=== PATIENT | female | born 1990 ===

== ENCOUNTER 2016-09-05 22:20 | Emergency (ER) | payer SELFPAY ==
[2016-09-05 22:55] VITALS: BMI 27.4
--- NOTE | 2016-09-05 23:01 | OBHP ---
Datetime: 09/05/2016 22:55 IP Adm Impression: , intrauterine IP Chief Complaint Other: right sided abdominal pain IP Admit Plan: Observation/Evaluation Admit Comment, IP Provider: Patient @ 21+ weeks with abdominal pain and back pain for past 2 hours, no vaginal bleeding, no leaking, no dysuria. Patient reports subjective fever at home with so re throat with coughing, no vomiting, no diarrhea, no other sick symptoms. Patient denies any antepar brian issues, no medical problems, no surgeries, previous x 1 no complications. DWD=[id number], afebrile and vitals stable. A/P 1. Patient shows no signs of labor or chorio. On exam patient has mild abdominal pain on deep palp ation of right lower quadrant, but no fever, no vomiting or other sick symptoms, no contractions. Sky l obtain UA, CBC and PO challenge patient 2. FHR obtained and no contractions on monitor 3. If patient remains stable and all tests are negative, will discharge patient home, patient has U/S for this tu09/07. Pelvic Type - PN: Adequate Extremities - PN: Normal Abdomen - PN: Abnormal Back - PN: Normal Breast - PN: Normal Lungs - PN: Normal Heart - PN: Normal Thyroid - PN: Normal Neurologic - PN: Normal HEENT - PN: Normal General - PN: Normal FHR - Baseline A Provider: 140s Contraction Comments Provider: none Comments, ACOG Physical Exam: patient has mild pain to deep palpation on right lower quadrant, no ga urding, no rebound, soft abdomen, +BS Genitourinary Exam: Normal DTRs - PN: Normal
[2016-09-05 23:14] LABS: BASO % 0.2 % (0.0-2.0); EOS # 0.4 K/uL (0.0-0.7); EOS % 2.2 % (0.0-4.0); HEMATOCRIT 36.9 % (34.0-47.0); LYMPH # 2.7 K/uL (1.0-4.3); LYMPH % 15.5 % (20.0-40.0); MEAN CELL VOLUME 92.1 fl (81.0-99.0); MEAN CORPUSCULAR HEMOGLOBIN 30.7 pg (27.0-31.0); MEAN CORPUSCULAR HGB CONC 33.4 g/dL (33.0-37.0); MEAN PLATELET VOLUME 9.8 fl (7.2-11.7); MONO # 1.1 K/uL (0.0-0.8); MONO % 6.4 % (0.0-10.0); NEUT # 13.4 K/uL (1.8-7.0); NEUT % 75.7 % (50.0-75.0); NRBC % 0.1 % (0.0-0.0); RED CELL DISTRIBUTION WIDTH 13.8 % (11.5-14.5); WHITE BLOOD COUNT 17.7 K/uL (4.8-10.8)
[2016-09-05 23:21] LABS: RBC URINE 4 /hpf (0-3); URINE BACTERIA RARE (<OCC); URINE BILIRUBIN NEGATIVE (NEGATIVE); URINE BLOOD SMALL (NEGATIVE); URINE COLOR YELLOW (YELLOW); URINE GLUCOSE (UA) NEG (Normal); URINE KETONE 20 mg/dL (NEGATIVE); URINE LEUKOCYTE ESTERASE NEG Leu/uL (Negative); URINE PROTEIN NEGATIVE (NEGATIVE); URINE UROBILINOGEN 0.2-1.0 mg/dL (0.2-1.0); WBC URINE 1 /hpf (0-5)
== END 2016-09-05 23:45 | disposition home or self-care (01) ==
LOC: H.EROB2 22:20
DX: O47.02 False labor before 37 completed weeks of gestation, second trimester (principal); Z3A.21 21 weeks gestation of pregnancy

== ENCOUNTER 2017-01-05 14:16 | Inpatient (IN) | payer MEDICAID, SELFPAY ==
--- NOTE | 2017-01-05 14:30 | OBPN ---
Datetime: 09/05/2016 23:30 IP Progress Plan: Discharge Contraction Comments Provider: none IP Progress Note Comment: Patient feeling slightly better, minimal abdominal pain. WBC=17, urine neg ative for infection, pt afebrile, tolerating PO. Fundus non-tender. No sign of chorio or labor. Unlik stas appedicitis because patient has no fever and is tolerating PO diet. Will discharge home, pt to fo llw up in clinic for U/S and office visit. Return to hospital if increased bleeding, leaking, abdomin al pain or new sick symptoms Datetime: 09/05/2016 22:55 FHR - Baseline A Provider: 140s
[2017-01-05 14:54] VITALS: BMI 33.6
[2017-01-05] MEDS: Lactated Ringer's 1,000 ML IV SCH ×2 (15:00→16:16)
[2017-01-05 16:00] LABS: BASO % 0.2 % (0.0-2.0); EOS # 0.2 K/uL (0.0-0.7); EOS % 1.9 % (0.0-4.0); LYMPH # 1.9 K/uL (1.0-4.3); LYMPH % 15.9 % (20.0-40.0); MEAN CELL VOLUME 92.3 fl (81.0-99.0); MEAN CORPUSCULAR HEMOGLOBIN 31.1 pg (27.0-31.0); MEAN CORPUSCULAR HGB CONC 33.7 g/dL (33.0-37.0); MEAN PLATELET VOLUME 11.5 fl (7.2-11.7); MONO # 1.1 K/uL (0.0-0.8); MONO % 9.8 % (0.0-10.0); NEUT # 8.4 K/uL (1.8-7.0); NEUT % 72.2 % (50.0-75.0); NRBC % 0.2 % (0.0-0.0); RED CELL DISTRIBUTION WIDTH 15.2 % (11.5-14.5); WHITE BLOOD COUNT 11.7 K/uL (4.8-10.8)
[2017-01-05] MEDS ORDERED: Fentanyl/Bupivacaine HCl 0 ML EPI ONE (16:56)
[2017-01-05] MEDS ORDERED: Lactated Ringer's 1,000 ML IV SCH (17:45)
[2017-01-05] MEDS ORDERED: Fentanyl/Bupivacaine HCl 250 ML EPI ONE (18:20)
[2017-01-05] MEDS ORDERED: Lidocaine 1% Inj (20ml) ONE (19:02)
--- NOTE | 2017-01-05 20:50 | OBPN ---
Datetime: 01/05/2017 20:23 IP Progress Impression: Normal progression of labor IP Informed Consent Obtain: Vaginal Delivery IP Progress Plan: Continue present management FHR - Baseline A Provider: 130 IP Progress Note Comment: at 38.2 wks, active labor, s/p epidural placement. pt is stable no c/ o or painl. Labor is progressing as usual. Pt was examined at 7:50pm, cervix was 7/90/0. Continue with expected mangement of labor. VS Stable FHR: 130, moderate variabilty, catagory I. [place] 2-[address] Calle --- Marylu Holm, PGY-1 (Annotations: Data stored by CPN on behalf of user) Vital Signs Provider: Reviewed; Within Normal Limits NICHD Accel Fetus A IP Provider: 15X15 FHR Category Provider Fetus A: Category I NICHD Variability Prov Fetus A: Moderate 6-25bpm Dilatation, Provider: 7 Effacement, Provider: 90 Station, Provider: 0 NICHD Decel Fetus A IP Provider: None Datetime: 01/05/2017 18:20 Membranes, Provider: Intact
[2017-01-05] MEDS ORDERED: Oxytocin 30 units/LR 500ML 30 U/500 ML BAG IV SCH (21:27)
[2017-01-05] MEDS ORDERED: Benzocaine/Menthol SPRAY TOP PRN (21:27)
[2017-01-05] MEDS ORDERED: Oxycodone/Acetaminophen 5/325 mg Tab PO PRN ×2 (21:27)
--- NOTE | 2017-01-05 21:32 | OBHP ---
Datetime: 01/05/2017 20:23 FHR - Baseline A Provider: 130 Vital Signs Provider: Reviewed; Within Normal Limits NICHD Variability Prov Fetus A: Moderate 6-25bpm NICHD Accel Fetus A IP Provider: 15X15 FHR Category Provider Fetus A: Category I NICHD Decel Fetus A IP Provider: None Dilatation, Provider: 7 Effacement, Provider: 90 Station, Provider: 0 Datetime: 01/05/2017 18:20 Membranes, Provider: Intact Datetime: 01/05/2017 15:13 IP Adm Impression: Term, intrauterine IP Admit Plan: Admit to unit; Initiate labor protocol Admit Comment, IP Provider: CC: "Contractions" HPI: 26 YO 28.2 wks IUP (by first trimester u/s) presents to [facility] for contractions. Per patie nt, the contractions started this morning around 9AM and has gotten more intense overtime. Currently, they are 4-5 minutes apart. Per chart pt had an echo done early in which showed tricuspid regurg, had a follow up with electric tape slitter 01/04/17 and pt was told that there was nothing of concern. Pt has had an uneventful thus far. Eduardo LOF, VB, +FM and +contractions. Denies headache, d izziness, N/V, fever. OBhx: CFH pt, 1 NVD full term, LGSIL 2013, normal pap 02/2015, HPV+ PMH: denies FH: denies SurgHx: denies Social hx: denies smoking, alcohol, drugs Meds: PNV [place]ergeis: NKDA PE Vitals: Stable GEN: Anxious Cardio: S1S2, no M/G/R Resp: vesicular breathing b/l Abdomen: gravid, NT, BS+ Ext: 1+ pitting edema, NT Cervicle: 3-4/75/0, posterior. Vertex presentation FHM: 140, moderte variability; catagory I Assessment/Plan: 26 YO 28.2 wks IUP (by first trimester u/s) presents to [facility] for contraction s. Per monitor, pt is having contractions every 3-4 mins, GBS neg, HIV neg (3rd tri), RPR neg, GC neg (3rd tri). Patient is in active phase of labor, vertex presentation. -admit to Labor and delivery -for pain, pt will consider epidural and will let us know later -CBC/Type and Screen/RPR -continue Monitoring, Monitor Labor progress Laury Berrios, PGY I obh addendum: pt seen _ examined by me. agree with assessment and plan. Pelvic Type - PN: Adequate Extremities - PN: Normal Abdomen - PN: Normal Back - PN: Not Done Breast - PN: Normal Lungs - PN: Normal Heart - PN: Normal Thyroid - PN: Not Done Neurologic - PN: Normal HEENT - PN: Normal General - PN: Normal EGA AdmitDate IP: 38.2 IP Chief Complaint: Uterine contractions Genitourinary Exam: Normal DTRs - PN: Not Done Datetime: 01/05/2017 15:11 IP Indication for Induction: Not Applicable Datetime: 09/05/2016 23:30 Contraction Comments Provider: none IP Hx Assessment: The History has been Reviewed and is Current
--- NOTE | 2017-01-05 21:33 | OBADHP ---
Datetime: 01/05/2017 20:23 FHR - Baseline A Provider: 130 Vital Signs Provider: Reviewed; Within Normal Limits NICHD Variability Prov Fetus A: Moderate 6-25bpm NICHD Accel Fetus A IP Provider: 15X15 FHR Category Provider Fetus A: Category I NICHD Decel Fetus A IP Provider: None Dilatation, Provider: 7 Effacement, Provider: 90 Station, Provider: 0 Datetime: 01/05/2017 18:20 Membranes, Provider: Intact Datetime: 01/05/2017 15:13 Pelvic Type - PN: Adequate Extremities - PN: Normal Abdomen - PN: Normal Back - PN: Not Done Breast - PN: Normal Lungs - PN: Normal Heart - PN: Normal Thyroid - PN: Not Done Neurologic - PN: Normal HEENT - PN: Normal General - PN: Normal IP Chief Complaint: Uterine contractions Genitourinary Exam: Normal DTRs - PN: Not Done EGA AdmitDate IP: 38.2 IP Adm Impression: Term, intrauterine IP Admit Plan: Admit to unit; Initiate labor protocol Datetime: 01/05/2017 15:11 Admit Comment, IP Provider: see triage note at 15:13 Datetime: 09/05/2016 23:30 Contraction Comments Provider: none IP Hx Assessment: The History has been Reviewed and is Current Datetime: 09/05/2016 22:55 IP Chief Complaint Other: right sided abdominal pain Comments, ACOG Physical Exam: patient has mild pain to deep palpation on right lower quadrant, no ga urding, no rebound, soft abdomen, +BS
--- NOTE | 2017-01-05 21:33 | OBHP ---
Datetime: 01/05/2017 15:13 EGA AdmitDate IP: 38.2 Datetime: 01/05/2017 15:11 Admit Comment, IP Provider: see triage note at 15:13
--- NOTE | 2017-01-05 21:57 | OBDS ---
DELIVERY PERSONNEL Delivery Doctor: Lily Crooks MD Welfare Eligibility Worker: Duran RN/ Sultana RN/ Araseli RN Anesthesiologist: Grant Nelson MD Resident: Dr. Holm MATERNAL INFORMATION Delivery Anesthesia: Epidural Medications in Delivery: Pitocin Estimated Blood Loss (ml): 300 Placenta Cultured: No Maternal Complications: None Provider Comments: DX: 38.2wks labor PP Dx: same Proced: over intact perineum ob:orossetos pgy1: jpatel anesth: epidural- dr nelson ebl: 300cc path none findings:3230// 9_9; male neon remained in br with pt. LABOR SUMMARY EDC: 01/17/2017 00:00 No. Babies in Womb: 1 Attempted: No Labor Anesthesia: Epidural LABOR INFORMATION Reason for Induction: Not Applicable Onset of Labor: 01/05/2017 09:00 Complete Dilatation: 01/05/2017 21:15 Other Ripening Agents: N/A Oxytocin: N/A Group B Beta Strep: Negative Antibiotics # of Doses: N/A Antibiotics Time of Last Dose: N/A Steroids Given: None Reason Steroids Not Administered: Not Applicable MEMBRANES Membranes Rupture Method: Spontaneous Rupture of Membranes: 01/05/2017 21:18 Length of Rupture (hrs): 0.00 Amniotic Fluid Color: Clear Amniotic Fluid Amount: Moderate Amniotic Fluid Odor: Normal STAGES OF LABOR Stage 1 hrs: 12 Stage 1 min: 15 Stage 2 hrs: 0 Stage 2 min: 3 Stage 3 hrs: 0 Stage 3 min: 5 Total Time in Labor hrs: 12 Total Time in Labor min: 23 VAGINAL DELIVERY Episiotomy: None Laceration Extension: N/A Laceration Type: None Laceration Repair: Not Applicable Initial Vag Sponge Count: 5 Final Vag Sponge Count: 5 Initial Vag Sharps Count: 15 Final Vag Sharps Count: 15 Sponge Count Correct: Yes Sharps Count Correct: Yes Count Comment: Laps 5 Instruments 15 All Count Correct BABY A INFORMATION Delivery Date/Time: 01/05/2017 21:18 Method of Delivery: Vaginal Born in Route : No : N/A Forceps: N/A Vacuum Extraction: N/A Shoulder Dystocia : No SHOULDER DYSTOCIA BABY A Delivery Date/Time: 01/05/2017 21:18 PRESENTATION/POSITION BABY A Presentation: Cephalic Cephalic Presentation: Vertex PLACENTA INFORMATION BABY A Placenta Delivery Time : 01/05/2017 21:23 Placenta Method of Delivery: Spontaneous Placenta Status: Delivered SCORES BABY A Heart Rate 1 min: >100 bpm Resp Effort 1 min: Good Cry Reflex Irritability 1 min: Cough or Sneeze or Pulls Away Muscle Tone 1 min: Active Motion Color 1 min: Body [place], Extremities Blue Resuscitation Effort 1 min: Tactile Stimulation SCORE 1 MIN: 9 Heart Rate 5 min: >100 bpm Resp Effort 5 min: Good Cry Reflex Irritability 5 min: Cough or Sneeze or Pulls Away Muscle Tone 5 min: Active Motion Color 5 min: Body [place], Extremities Blue Resuscitation Effort 5 min: N/A SCORE 5 MIN: 9 INFANT INFORMATION BABY A Gestational Age at Delivery: 38.2 Gestational Status: Term Outcome : Liveborn Infant Condition : Stable Sex: Male IDENTIFICATION/MEDS BABY A ID Band Number: [id number] ID Band Location: Left Leg; Left Arm WEIGHT/LENGTH BABY A Infant Birthweight (gms): 3230 Infant Weight (lb): 7 Weight (oz): 2 CORD INFORMATION BABY A No. Cord Vessels: 3 Nuchal Cord : N/A Infant Cord pH Baby Arterial: n/a Cord pH Baby Venous: n/a Cord Blood Taken: Yes Suction: Mouth; Nose ASSESSMENT BABY A Infant Complications: None Physical Findings at Delivery: Within Normal Limits Infant Respirations: Appears Normal Fiber Optic Assembly Worker/ALS Called : No Care By: Dr. Bella /Duran RN Transferred To: Remains with Mother
[2017-01-06 08:57] LABS: MEAN CELL VOLUME 92.7 fl (81.0-99.0); MEAN CORPUSCULAR HEMOGLOBIN 31.1 pg (27.0-31.0); MEAN CORPUSCULAR HGB CONC 33.5 g/dL (33.0-37.0); RED CELL DISTRIBUTION WIDTH 14.9 % (11.5-14.5); WHITE BLOOD COUNT 17.2 K/uL (4.8-10.8)
--- NOTE | 2017-01-07 09:42 | OBPPN ---
Datetime: 01/07/2017 05:57 PP Pain Prov: Within normal limits PP Nausea Prov: Denies PP Flatus Prov: Yes PP BM Prov: Yes PP Heart Prov: Normal PP Lungs Prov: Normal PP Abdomen/Uterus Prov: Normal PP Lochia Prov: Normal PP CVA Tenderness Prov: Normal PP Extremities Prov: Normal PP Progress Prov: Normal PP Impression Prov: Normal progression PP Plan Prov: Discharge PP Progress Note Prov: S: 26 yo s/p NVD on 01/05/17 at 21:23. [facility] No overnight events. Pt reports occasional abdominal pain, but well controlled with pain m eds. Pt is ambulating without any difficulties. Breast feeding baby. Tolerating PO diet. Lochia is si milar to light menses in volume. Voiding freely, had Bowel movement, and passing gas per rectum. Germán es fever/chills, diarrhea, nausea/vomiting, chest pain, dyspnea, and dizziness. Of note, O: VS: stable GEN: NAD Cardio: s1s2, no M/G/R Resp: clear breath sounds b/l Abdomen: BS+, NT, Uterus is firm and at the level of the umbilicus. EXT: No edema, calves nontender NEURO/PSYCHI: AAOx3, no grossly focal deficit, preserved affect and mood. Assessment/Plan: 26 yo s/p NVD on 01/05/17 at 21:23. Pt remains afebrile, tolerating pain with medication, tolerating PO intake, doing well on POD2. Ibuprofen 600mg for pain. Colace 100mg PO BID for constipation Encourage and ambulating F/u CBC post-delivery: 12.4/37.0 will d/c today --- Marylu Holm, PGY-1 OB Hospitalist note: This pt was seen and examined by me. Agree with above note. ALLENNDO Vital Signs Provider PP: Reviewed; Within Normal Limits Datetime: 01/06/2017 05:05 PP Breasts Prov: Normal IP PP Procedures: None
--- NOTE | 2017-01-07 09:42 | OBDCSUM ---
Datetime: 01/07/2017 06:07 Discharged to, Provider: Home Follow up at, Provider: [facility] Disch Instr Activity: Normal activity Disch Instr Diet: Regular Discharge Instructions, Provider: Routine instructions given Discharge Diagnosis, Provider: Term Delivered Follow up in weeks, Provider: 6w Disch Referrals: None Contraception discussed, Prov: Yes Disch Activity Restrictions: No sexual activity; Nothing in vagina - [place], tampons, douche Discharge Comment, Provider: DOA: 01/05/17 EGA: 38.2 Diagnosis: NVD term PRisk factores: none summary of : 26 y/o F L_D summary: DOL: 01/05/17 at 21:23 NVD NB: male : 9/9 Weight: 3230gm PP summary: No serious complications during PP. Lochia= menses, mild pain, controlled with medications Rubella immune, Tdap11/09/16 blood type: O+ CBC pp: 12.4/37.0 Discharge Date 01/07/17 , time 10:00AM Discharge Instructions: -encourage -Ibuprofen for pain PRN -Colace -Ambulate as tolerated -f/u NB visit and PP visit ---- Marylu Holm, PGY1 OB Hospitalist note: This pt was seen and examined by me. Agree with above note. SHILOH
[2017-01-07 16:41] VITALS: BP 112/64; PULSE 67; RESP 20; TEMP 98.2; O2SAT 99
== END 2017-01-07 12:26 | disposition home or self-care (01) | DRG 372 ==
LOC: H.EROB2 14:16 → H.L&D 14:54 → H.OB/GYN 23:23
PROVIDERS: ADMIT Obstetrics & Gynecology; ATTEND Obstetrics & Gynecology
PROC: 10E0XZZ Delivery of Products of Conception, External Approach (ICD-10-PCS; principal; 2017-01-05)
PROC: 4A1HXCZ Monitoring of Products of Conception, Cardiac Rate, External Approach (ICD-10-PCS; 2017-01-05)
DX: O99.42 Diseases of the circulatory system complicating childbirth (principal); I07.1 Rheumatic tricuspid insufficiency; Z37.0 Single live birth; Z3A.38 38 weeks gestation of pregnancy; K59.00 Constipation, unspecified